=== PATIENT | male | born 1965 | race Hispanic/Latino ===

== ENCOUNTER 2018-04-18 19:46 | Inpatient (IN) | payer OTHER ==
[~2018-04-18] VITALS: Ht 182.9 cm; Wt 110.8 kg
[2018-04-18] MEDS ORDERED: ACETAMINOPHEN 325 MG TAB PO ONE (20:15)
[2018-04-18 20:39] LABS: BASOPHILS % 0.1 % (0.0-1.0); HEMATOCRIT 38.5 % (38.2-49.6); HEMOGLOBIN 13.9 g/dL (14.0-18.0); LYMPHOCYTES # (AUTO) 0.7 (1.0-3.2); LYMPHOCYTES % 7.5 % (18.0-39.1); MEAN CORPUSCULAR HEMOGLOBIN 31.8 pg (28-32); MEAN CORPUSCULAR HGB CONC 36.1 g/dL (31-35); MEAN CORPUSCULAR VOLUME 88.1 fL (81-99); MONOCYTES # (AUTO) 0.7 (0.2-0.8); MONOCYTES % 7.4 % (4.4-11.3); NEUTROPHILS # (AUTO) 8.3 (2.1-6.9); NEUTROPHILS % 84.5 % (38.7-80.0); PLATELET COUNT 157 x10e3/uL (140-360); RED BLOOD COUNT 4.37 x10e6/uL (4.3-5.7); RED CELL DISTRIBUTION WIDTH 12.1 % (11.7-14.4)
[2018-04-18 20:58] LABS: ALANINE AMINOTRANSFERASE 51 IU/L (0-55); ALBUMIN 3.6 g/dL (3.5-5.0); ALBUMIN/GLOBULIN RATIO 0.9 (0.8-2.0); ALKALINE PHOSPHATASE 78 IU/L (40-150); ANION GAP 16.2 mmol/L (8-16); BLOOD UREA NITROGEN 8 mg/dL (7-26); BUN/CREATININE RATIO 8 (6-25); CALCIUM 9.3 mg/dL (8.4-10.2); CARBON DIOXIDE 18 mmol/L (22-29); CHLORIDE 103 mmol/L (98-107); CREATININE, SERUM 1.06 mg/dL (0.72-1.25); EST GLOMERULAR FILTRATION RATE > 60 ML/MIN (60-); GLUCOSE 139 mg/dL (74-118); POTASSIUM 4.2 mmol/L (3.5-5.1); SODIUM 133 mmol/L (136-145)
[2018-04-18 21:09] LABS: CLARITY,URINE CLEAR (CLEAR); COLOR,URINE AMBER (YELLOW); LEUKOCYTE ESTERASE ,URINE NEGATIVE (NEGATIVE); NITRITE,URINE NEGATIVE (NEGATIVE); PROTEIN,URINE DIPSTICK 1+ (NEGATIVE)
[2018-04-18 21:10] LABS: BILIRUBIN,URINE NEGATIVE (NEGATIVE); KETONES,URINE TRACE (NEGATIVE); URINE UROBILINOGEN 1 mg/dL (0.2 - 1)
[2018-04-18 21:17] LABS: RBC,URINE 0-5 /HPF (0-5)
[2018-04-18 21:18] LABS: HYALINE CASTS 0-1 (0-1); MUCUS,URINE FEW (RARE)
[2018-04-18] MEDS ORDERED: SODIUM CHLORIDE 0.9% 1000ML 1,000 ML IV ONE (22:00)
--- NOTE | 2018-04-18 22:21 | Diagnostic Imaging Report ---
EXAMINATION: CHEST 2 VIEWS INDICATION: Fever COMPARISON: None FINDINGS: TUBES and LINES: None. LUNGS: Lungs are not well inflated. Left hemithorax airspace opacity. PLEURA: No pleural effusion or pneumothorax. HEART AND MEDIASTINUM: Cardiac size is mildly enlarged. BONES AND SOFT TISSUES: No acute osseous lesion. Cervicothoracic spinal fusion with plates and screws anteriorly Soft tissues are unremarkable. UPPER ABDOMEN: No free air under the diaphragm. IMPRESSION: Findings in the left hemithorax are consistent with pneumonia. Follow-up until resolution is recommended after treatment Signed by: Dr. John Urban M.D. on 04/18/2018 10:17 PM
[2018-04-18] MEDS ORDERED: LEVOFLOXACIN 750MG/D5W 150ML 150 ML IV STA (22:55)
[2018-04-18] MEDS: ALBUTEROL SULF 0.083% NEB SOLN 3 ML NEB NEB SCH (23:00)
[2018-04-19] VITALS (12 sets, daily range): BP systolic 127–176; BP diastolic 70–94
[2018-04-19 00:03] LABS: CREATINE KINASE MB 0.2 ng/mL (0-5.0)
[2018-04-19] MEDS ORDERED: IBUPROFEN 600 MG TAB ONE (00:04)
[2018-04-19] MEDS ORDERED: IBUPROFEN 600 MG TAB PO STA (00:06)
[2018-04-19] MEDS: LEVOFLOXACIN 750MG/DEXTROSE PREMIX BAG 150ML IV SCH ×2 (00:13→23:15)
[2018-04-19] MEDS: ALBUTEROL SULF 0.083% NEB SOLN 3 ML NEB NEB SCH ×6 (03:00→23:00)
[2018-04-19 04:51] LABS: BASOPHILS % 0.1 % (0.0-1.0); EOSINOPHILS % 0.1 % (0.0-6.0); HEMATOCRIT 36.7 % (38.2-49.6); HEMOGLOBIN 13.4 g/dL (14.0-18.0); LYMPHOCYTES # (AUTO) 0.6 (1.0-3.2); LYMPHOCYTES % 8.4 % (18.0-39.1); MEAN CORPUSCULAR HEMOGLOBIN 32.1 pg (28-32); MEAN CORPUSCULAR HGB CONC 36.5 g/dL (31-35); MEAN CORPUSCULAR VOLUME 87.8 fL (81-99); MONOCYTES # (AUTO) 0.6 (0.2-0.8); MONOCYTES % 8.2 % (4.4-11.3); NEUTROPHILS % 82.8 % (38.7-80.0); PLATELET COUNT 147 x10e3/uL (140-360); RED BLOOD COUNT 4.18 x10e6/uL (4.3-5.7); RED CELL DISTRIBUTION WIDTH 12.3 % (11.7-14.4)
[2018-04-19 05:12] LABS: ALANINE AMINOTRANSFERASE 43 IU/L (0-55); ALBUMIN 3.1 g/dL (3.5-5.0); ALBUMIN/GLOBULIN RATIO 0.9 (0.8-2.0); ALKALINE PHOSPHATASE 71 IU/L (40-150); ANION GAP 14.5 mmol/L (8-16); BLOOD UREA NITROGEN 8 mg/dL (7-26); BUN/CREATININE RATIO 9 (6-25); CALCIUM 9.2 mg/dL (8.4-10.2); CARBON DIOXIDE 22 mmol/L (22-29); CHLORIDE 107 mmol/L (98-107); CREATINE KINASE 36 IU/L (30-200); CREATININE, SERUM 0.86 mg/dL (0.72-1.25); EST GLOMERULAR FILTRATION RATE > 60 ML/MIN (60-); GLUCOSE 145 mg/dL (74-118); POTASSIUM 3.5 mmol/L (3.5-5.1); SODIUM 140 mmol/L (136-145)
[2018-04-19] MEDS: SODIUM CHLORIDE 0.9% 1000ML 1,000 ML IV SCH ×4 (05:33→23:15)
[2018-04-19] MEDS: ACETAMINOPHEN 325 MG TAB PO PRN ×3 (07:44→23:15)
[2018-04-19] MEDS: IPRATROPIUM BROMIDE 0.02% 2.5 ML NEB NEB SCH ×4 (08:42→18:00)
[2018-04-19] MEDS ORDERED: ONDANSETRON HCL INJ 2 MG/ML VIAL IV PRN (13:00)
[2018-04-19] MEDS: IBUPROFEN 600 MG TAB PO PRN ×2 (14:32→21:30)
[2018-04-19 14:45] LABS: CREATINE KINASE MB 0.4 ng/mL (0-5.0)
[2018-04-19] MEDS ORDERED: VANCOMYCIN 1GM/NS 250 ML 250 ML IV SCH (19:00)
[2018-04-19 19:04] LABS: ABG HCO3 22 mmol/L (23-28); ABG PCO2 31 mmHg (41-51); ABG PH 7.45 (7.31-7.41); ABG PO2 74 mmHg (80-105)
[2018-04-19] MEDS: VANCOMYCIN HCL 1.5 GM in SODIUM CHLORIDE 0.9% 250ML 300 ML IV SCH (19:50)
[2018-04-19] MEDS: ACETAMIN/BUTALBITAL/CAFFEINE TAB PO PRN (22:44)
[2018-04-20] VITALS (41 sets, daily range): BP systolic 121–155; BP diastolic 69–99
[2018-04-20] MEDS: ALBUTEROL SULF 0.083% NEB SOLN 3 ML NEB NEB SCH ×6 (03:15→23:05)
[2018-04-20] MEDS: IPRATROPIUM BROMIDE 0.02% 2.5 ML NEB NEB SCH ×6 (03:15→22:50)
[2018-04-20 04:46] LABS: BASOPHILS % 0.2 % (0.0-1.0); EOSINOPHILS % 0.2 % (0.0-6.0); HEMATOCRIT 35.4 % (38.2-49.6); HEMOGLOBIN 12.7 g/dL (14.0-18.0); LYMPHOCYTES # (AUTO) 0.6 (1.0-3.2); LYMPHOCYTES % 10.2 % (18.0-39.1); MEAN CORPUSCULAR HEMOGLOBIN 31.4 pg (28-32); MEAN CORPUSCULAR HGB CONC 35.9 g/dL (31-35); MEAN CORPUSCULAR VOLUME 87.4 fL (81-99); MONOCYTES # (AUTO) 0.4 (0.2-0.8); MONOCYTES % 7.3 % (4.4-11.3); NEUTROPHILS # (AUTO) 4.5 (2.1-6.9); NEUTROPHILS % 81.7 % (38.7-80.0); PLATELET COUNT 143 x10e3/uL (140-360); RED BLOOD COUNT 4.05 x10e6/uL (4.3-5.7); RED CELL DISTRIBUTION WIDTH 12.5 % (11.7-14.4)
[2018-04-20 05:14] LABS: ANION GAP 14.5 mmol/L (8-16); BLOOD UREA NITROGEN 6 mg/dL (7-26); BUN/CREATININE RATIO 7 (6-25); CALCIUM 9.2 mg/dL (8.4-10.2); CARBON DIOXIDE 21 mmol/L (22-29); CHLORIDE 108 mmol/L (98-107); CREATININE, SERUM 0.83 mg/dL (0.72-1.25); EST GLOMERULAR FILTRATION RATE > 60 ML/MIN (60-); GLUCOSE 124 mg/dL (74-118); POTASSIUM 3.5 mmol/L (3.5-5.1); SODIUM 140 mmol/L (136-145)
[2018-04-20] MEDS: VANCOMYCIN HCL 1.5 GM in SODIUM CHLORIDE 0.9% 250ML 300 ML IV SCH ×2 (08:45→19:31)
[2018-04-20] MEDS: ACETAMIN/BUTALBITAL/CAFFEINE TAB PO PRN (08:53)
[2018-04-20] MEDS: SODIUM CHLORIDE 0.9% 1000ML 1,000 ML IV SCH ×5 (09:44→21:15)
[2018-04-20 12:07] LABS: HIV 1&2 AB SCREEN NON-REACTIVE (NONREACTIVE)
[2018-04-20] MEDS: ACETAMINOPHEN 325 MG TAB PO PRN ×2 (12:12→19:00)
--- NOTE | 2018-04-20 13:54 | Diagnostic Imaging Report ---
PROCEDURE: CT scan of the chest WITH intravenous contrast, using standard protocol. TECHNIQUE: The chest was scanned utilizing a multidetector helical scanner from the lung apex through the level of the adrenal glands after the IV administration of 100 cc of Isovue 370. Coronal and sagittal multiplanar reformations were obtained. COMPARISON: Patients [facility], , CHEST 2 VIEWS, 04/18/2018, 20:17. INDICATIONS: PNEUMONIA,fever FINDINGS: Lines/tubes: None. Lungs and Airways: Focal consolidation involving the superior and posterior left upper lobe (for example, series 4, images 32, 53 and sagittal image 110). Mild compressive atelectasis in the left lower lobe. Focal groundglass opacities in the superior segment of the right lower lobe (series 4, image 55). 4 mm nodule in the lateral right lower lobe (series 4, image 68). No other nodules or any pulmonary masses. Airways are clear, without endobronchial lesions. Pleura: Small left-sided pleural effusion. Heart and mediastinum: Thyroid is unremarkable. Heart size is normal. No pericardial effusion. Aorta is not aneurysmal. No pulmonary artery is normal in caliber. Lymph nodes: No mediastinum, hilar, or axillary adenopathy. Abdomen: Please see CT abdomen performed same date for further detail. Bones: No aggressive lytic lesions. Mild degenerative changes in the thoracic spine. Soft tissues are unremarkable. IMPRESSION: 1. Focal consolidation in the left upper lobe consistent with pneumonia. Focal groundglass opacity in the superior segment of the right lower lobe may represent additional focus of infection versus atelectasis. 2. Small left pleural effusion, likely parapneumonic, with associated mild compressive atelectasis of the left lower lobe. 3. Nonspecific 4 mm nodule in the lateral right lower lobe. Malvin Ortiz M.D. Dictated by: Malvin Ortiz M.D. on 04/20/2018 at 13:59 Electronically approved by: Malvin Ortiz M.D. on 04/20/2018 at 13:59
--- NOTE | 2018-04-20 14:01 | Diagnostic Imaging Report ---
PROCEDURE: CT ABDOMEN WITH CONTRAST TECHNIQUE: The abdomen was scanned utilizing a multidetector helical scanner from the diaphragm to the iliac crest after the IV administration of 100 cc of Isovue 370 and the oral administration of water . Coronal and sagittal multiplanar reformations were obtained. COMPARISON: None. INDICATIONS: PNEUMONIA,FEVER FINDINGS: LOWER THORAX: Please see CT chest performed same date for description of lung findings. HEPATOBILIARY: Mild diffuse hepatic steatosis. Normal hepatic size and contour. 5 mm hypodense lesion in hepatic segment (series 2, image 68), which is to small to characterize but likely represents a small cyst. No other focal lesions. No biliary ductal dilation. Gallbladder is unremarkable. SPLEEN: No splenomegaly. PANCREAS: No focal masses or ductal dilatation. ADRENALS: No adrenal nodules. KIDNEYS: No renal or ureteral calculi, hydronephrosis, or obstruction. Fluid density 3.8 x 2.0 cm structure in the left renal sinus (coronal image 75), likely represents a peripelvic cyst. Additional subcentimeter fluid density structures in bilateral renal sinuses, likely representing other small peripelvic cysts. No solid enhancing lesions. PERITONEUM / RETROPERITONEUM: No free air or fluid. LYMPH NODES: No lymphadenopathy. VESSELS: Celiac trunk, superior and inferior mesenteric, and bilateral renal arteries are patent. Portal, superior mesenteric, and splenic veins are patent. Mild atherosclerotic calcification of the distal abdominal aorta and proximal vessels. GI TRACT: Visualized portions of the bowel show no dilation or obstruction. Appendix identified and normal in caliber. Scattered diverticula in the distal descending and proximal sigmoid colon without diverticulitis. BONES AND SOFT TISSUES: No aggressive lytic lesions. Minimal degenerative disc changes at L3-L4. Soft tissues are grossly unremarkable. IMPRESSION: 1. No acute abdominopelvic abnormalities. 2. Mild diffuse hepatic steatosis. No suspicious hepatic lesions. Malvin Ortiz M.D. Dictated by: Malivn Ortiz M.D. on 04/20/2018 at 14:06 Electronically approved by: Malvin Ortiz M.D. on 04/20/2018 at 14:06
[2018-04-20] MEDS ORDERED: SODIUM CHLORIDE 0.9% 50ML 50 ML ONE (15:04)
[2018-04-20] MEDS ORDERED: IOPAMIDOL 370 MG/ML 200 ML INFUS..BTL INJ ONE (15:05)
--- NOTE | 2018-04-20 16:24 | Consultation ---
DATE OF CONSULTATION: REASON FOR CONSULTATION: Sepsis, pneumonia. HISTORY OF PRESENT ILLNESS: This patient who is very pleasant 52-year-old gentleman, denies past medical history, comes into the hospital because he is having fever and chills. The patient is telling me that he was in good health. 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 Patient started to have fever, chills, not feeling well, some dry cough, came to the hospital because he was feeling really bad. The patient who is otherwise healthy, the patient apparently sick for the last 3 days, body aches, not feeling well, fever, temperature 103, and some cough. PAST MEDICAL HISTORY: Denies. PAST SURGICAL HISTORY: Neck surgery. ALLERGIES: NKA. SOCIAL HISTORY: Denies smoking, drug abuse, alcohol abuse. FAMILY HISTORY: Otherwise unremarkable. REVIEW OF SYSTEMS: HEENT: Negative. PULMONARY: Negative. CARDIAC: Negative. : Negative. SKIN: There are no other rashes. PHYSICAL EXAMINATION: He is alert, oriented, but he looked a little bit apprehensive, short of breath, looks uncomfortable when I was assessing him. LABS: White count is 9.7, hemoglobin 13. His sodium 133, potassium 4.2, creatinine 1.06. Chest x-ray showed left hemithorax pneumonia. His blood gas showed pH 7.45, pCO2 of 31, pO2 of 24, on FiO2 of 20%. IMPRESSION: Concerned about this patient's sepsis, pneumonia present on admission. Will change antibiotic to Levaquin, vancomycin. Will move him to intensive care unit. Will obtain arterial blood gases. Will give him intravenous fluids and assess the patient closely. Discussed with the attending. Will follow. Thank you. Job#: [id number]
[2018-04-20] MEDS: IBUPROFEN 600 MG TAB PO PRN ×2 (16:33→23:18)
[2018-04-20] MEDS: MEROPENEM 500 MG VIAL IV SCH ×2 (17:42→23:59)
[2018-04-20] MEDS ORDERED: MEROPENEM 500MG 500 MG in SODIUM CHLORIDE 0.9% 50ML 50 ML IV SCH (18:00)
--- NOTE | 2018-04-20 18:50 | Consultation ---
DATE OF CONSULTATION: PULMONARY CONSULTATION Patient of Dr. Villalta and Dr. Acevedo. An unfortunate 52-year-old gentleman admitted with left upper lobe pneumonia. He had fever and chills of 4 days duration. 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 Temperature as high as 104. He has had a nonproductive cough, left-sided chest pain, history of high blood pressure, earaches, sweats, myalgias. ALLERGIES: PENICILLIN. MEDICATIONS: No regular medications. PAST SURGICAL HISTORY: He has had neck surgery and hernia repair. 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 He recently visited [place]. FAMILY HISTORY: Positive for diabetes and coronary disease. PHYSICAL EXAMINATION GENERAL: A burly white male, anxious, but in no acute distress. VITAL SIGNS: Temperature 101.9, pulse 124, respirations 24, blood pressure 140/80. HEENT: Head is normocephalic, atraumatic. Eyes: Extraocular movements intact. LUNGS: Rales and bronchial breath sounds, left chest, anteriorly. HEART: Regular rhythm. ABDOMEN: Nontender, obese. EXTREMITIES: Not edematous. IMPRESSION: Pneumonia with parapneumonic effusion, left upper lobe. Antibiotics have now been changed to Levaquin and meropenem. Check review of his history of travel recently. Check Legionella. Consider thoracentesis in view of the patient's effusion and persistent fever. Consider bronchoscopy if the patient does not improve. There is no evidence of bronchial obstruction or airway bronchus. He was on Levaquin. He has now had the addition of vancomycin and meropenem. Will continue close monitoring in the ICU. Thank you for this kind referral. Job#: [id number]
[2018-04-20] MEDS ORDERED: DIPHENHYDRAMINE HCL 25 MG CAP PO PRN (21:00)
[2018-04-20] MEDS: LEVOFLOXACIN 750MG/DEXTROSE PREMIX BAG 150ML IV SCH (23:18)
[2018-04-21] VITALS (31 sets, daily range): BP systolic 73–171; BP diastolic 35–124
[2018-04-21] MEDS: ALBUTEROL SULF 0.083% NEB SOLN 3 ML NEB NEB SCH ×6 (03:10→22:55)
[2018-04-21] MEDS: IPRATROPIUM BROMIDE 0.02% 2.5 ML NEB NEB SCH ×6 (03:10→22:55)
[2018-04-21 05:16] LABS: INR 1.22; PROTHROMBIN TIME 14.5 seconds (11.9-14.5)
[2018-04-21 05:42] LABS: ALANINE AMINOTRANSFERASE 44 IU/L (0-55); ALBUMIN 2.5 g/dL (3.5-5.0); ALBUMIN/GLOBULIN RATIO 0.7 (0.8-2.0); ALKALINE PHOSPHATASE 96 IU/L (40-150); ANION GAP 12.6 mmol/L (8-16); BLOOD UREA NITROGEN 5 mg/dL (7-26); BUN/CREATININE RATIO 6 (6-25); CALCIUM 9.1 mg/dL (8.4-10.2); CARBON DIOXIDE 24 mmol/L (22-29); CHLORIDE 109 mmol/L (98-107); CREATININE, SERUM 0.84 mg/dL (0.72-1.25); EST GLOMERULAR FILTRATION RATE > 60 ML/MIN (60-); GLUCOSE 114 mg/dL (74-118); POTASSIUM 3.6 mmol/L (3.5-5.1); SODIUM 142 mmol/L (136-145)
[2018-04-21] MEDS: MEROPENEM 500 MG VIAL IV SCH ×3 (05:42→17:47)
[2018-04-21] MEDS: ACETAMINOPHEN 325 MG TAB PO PRN (05:44)
--- NOTE | 2018-04-21 06:06 | Diagnostic Imaging Report ---
EXAMINATION: CHEST SINGLE (PORTABLE) INDICATION: Pneumonia. COMPARISON: 04/18/2018 FINDINGS: TUBES and LINES: None. LUNGS: Lungs are well inflated. More confluent airspace opacity in the left midlung . PLEURA: Developing left pleural effusion. HEART AND MEDIASTINUM: Cardiac size is moderately enlarged. There are atherosclerotic calcifications within the aorta. BONES AND SOFT TISSUES: No acute osseous lesion. Soft tissues are unremarkable. UPPER ABDOMEN: No free air under the diaphragm. IMPRESSION: 1. Findings in the left hemithorax are compatible with developing pneumonia and small left pleural effusion. 2. Moderate enlargement of the heart without decompensation. Signed by: Dr. John Urban M.D. on 04/21/2018 6:03 AM
[2018-04-21 06:15] LABS: BASOPHILS % 0.2 % (0.0-1.0); EOSINOPHILS # (AUTO) 0.1 (0.0-0.4); EOSINOPHILS % 1.9 % (0.0-6.0); HEMATOCRIT 33.1 % (38.2-49.6); HEMOGLOBIN 11.7 g/dL (14.0-18.0); LYMPHOCYTES # (AUTO) 0.6 (1.0-3.2); LYMPHOCYTES % 13.2 % (18.0-39.1); MEAN CORPUSCULAR HEMOGLOBIN 31.9 pg (28-32); MEAN CORPUSCULAR HGB CONC 35.3 g/dL (31-35); MEAN CORPUSCULAR VOLUME 90.2 fL (81-99); MONOCYTES # (AUTO) 0.5 (0.2-0.8); MONOCYTES % 10.3 % (4.4-11.3); NEUTROPHILS # (AUTO) 3.5 (2.1-6.9); PLATELET COUNT 150 x10e3/uL (140-360); RED BLOOD COUNT 3.67 x10e6/uL (4.3-5.7)
[2018-04-21] MEDS: SODIUM CHLORIDE 0.9% 1000ML 1,000 ML IV SCH ×3 (06:23→22:28)
[2018-04-21 07:50] LABS: BAND NEUTROPHILS % (MANUAL) 6 %; LYMPHOCYTES % (MANUAL) 20 % (19-48); MONOCYTES % (MANUAL) 9 % (3.4-9.0); NEUTROPHILS % (MANUAL) 64 % (40-74); PLATELET ESTIMATE ADEQUATE; RBC MORPHOLOGY COMMENT NORMAL
[2018-04-21 07:51] LABS: PLATELET MORPHOLOGY COMMENT NORMAL
[2018-04-21] MEDS: VANCOMYCIN HCL 1.5 GM in SODIUM CHLORIDE 0.9% 250ML 300 ML IV SCH (08:00)
[2018-04-21] MEDS ORDERED: VANCOMYCIN 1GM/NS 250 ML 250 ML IV SCH (10:45)
--- NOTE | 2018-04-21 11:40 | Diagnostic Imaging Report ---
PROCEDURE: CHEST XRAY POST PROCEDURE COMPARISON: Chest radiograph 04/21/18. INDICATIONS: POST THORACENTESIS FINDINGS: LUNGS: Low lung volumes. Consolidative opacity in the left mid and lower lung zones, similar to prior radiograph. No evidence of edema. PLEURA: Trace left basilar pneumothorax, post thoracentesis. No significant air gap. No significant residual pleural effusion. HEART \T\ MEDIASTINUM: Apparent widening of the upper cardiomediastinal silhouette is likely secondary to portable technique and hydration status. BONES \T\SOFT TISSUES: No acute findings. CONCLUSION: Trace left basilar pneumothorax status post thoracentesis. No significant air gap. Left mid and lower lung zone consolidation, consistent with known pneumonia. Dictated by: OTONIEL GONZALES M.D. on 04/21/2018 at 11:45 Electronically approved by: OTONIEL GONZALES M.D. on 04/21/2018 at 11:45
--- NOTE | 2018-04-21 13:31 | Diagnostic Imaging Report ---
PROCEDURE:US CHEST COMPARISON:None. INDICATIONS:pleural effusion FINDINGS:Focused ultrasound was performed of the left chest to evaluate for pleural effusion. A small left basilar pleural effusion was identified. No right sided pleural effusion. CONCLUSION: Focused ultrasound of the chest demonstrating small left basilar pleural effusion and no right sided pleural effusion. Please refer to dictation from subsequently performed left sided diagnostic thoracentesis. Dictated by: OTONIEL GONZALES M.D. on 04/21/2018 at 13:35 Electronically approved by: OTONIEL GONZALES M.D. on 04/21/2018 at 13:35
--- NOTE | 2018-04-21 13:34 | Diagnostic Imaging Report ---
PROCEDURE: ULTRASOUND GUIDED LEFT DIAGNOSTIC THORACENTESIS INDICATIONS: Pneumonia, now with small left pleural effusion COMPARISON: CT Chest 04/20/18. TECHNIQUE: The patient was informed of the nature of the proposed procedure. The purposes, alternatives, risks, and benefits were explained and discussed. All questions were answered and written consent was obtained. Medications: 1% Xylocaine DESCRIPTION/FINDINGS: Informed consent was obtained from the patient. Sterile technique was used. An ultrasound-guided left sided diagnostic thoracentesis was performed. With the use of ultrasound guidance, a small left pleural fluid collection was identified. After infiltrating the skin with 1% xylocaine, a 20 gauge spinal needle was advanced into the left pleural space and 100 cc of serous fluid was removed. The needle was removed without immediate complication. A chest radiograph was ordered. Samples were sent for analysis. IMPRESSION: ULTRASOUND GUIDED LEFT SIDED DIAGNOSTIC THORACENTESIS WITH ASPIRATION OF 100 CC OF SEROUS FLUID. Dictated by: OTONIEL GONZALES M.D. on 04/21/2018 at 13:39 Electronically approved by: OTONIEL GONZALES M.D. on 04/21/2018 at 13:39
[2018-04-21 13:37] LABS: BODY FLUID APPEARANCE SL.CLOUDY; BODY FLUID COLOR YELLOW; BODY FLUID TYPE PLEURAL
[2018-04-21 13:38] LABS: RBC,BODY FLUID 2846 cells/uL; WBC,BODY FLUID 1609 cells/uL
[2018-04-21 13:43] LABS: LYMPHOCYTES,BODY FLUID 13 %; MONO/MACROPHG,BODY FLUID 11 %; OTHER CELLS,BODY FLUID 7 %
[2018-04-21 13:52] LABS: NEUTROPHILS,BODY FLUID 69 %
[2018-04-21] MEDS: ACETAMIN/BUTALBITAL/CAFFEINE TAB PO PRN (15:40)
[2018-04-21] MEDS: IBUPROFEN 600 MG TAB PO PRN (16:20)
[2018-04-21] MEDS: VANCOMYCIN HCL 2 GM in SODIUM CHLORIDE 0.9% 500ML 500 ML IV SCH (20:00)
[2018-04-21] MEDS: LEVOFLOXACIN 750MG/DEXTROSE PREMIX BAG 150ML IV SCH (23:00)
[2018-04-22] VITALS (39 sets, daily range): BP systolic 139–169; BP diastolic 75–106
[2018-04-22] MEDS: ACETAMINOPHEN 325 MG TAB PO PRN (00:05)
[2018-04-22] MEDS: ALBUTEROL SULF 0.083% NEB SOLN 3 ML NEB NEB SCH ×6 (03:05→22:45)
[2018-04-22] MEDS: IPRATROPIUM BROMIDE 0.02% 2.5 ML NEB NEB SCH ×6 (03:05→22:45)
[2018-04-22] MEDS: MEROPENEM 500 MG VIAL IV SCH ×4 (05:43→17:36)
[2018-04-22] MEDS: IBUPROFEN 600 MG TAB PO PRN (06:50)
[2018-04-22] MEDS: SODIUM CHLORIDE 0.9% 1000ML 1,000 ML IV SCH ×3 (08:10→22:53)
[2018-04-22] MEDS: VANCOMYCIN HCL 2 GM in SODIUM CHLORIDE 0.9% 500ML 500 ML IV SCH ×2 (08:34→20:20)
--- NOTE | 2018-04-22 16:32 | Progress Note ---
DATE: INTERNAL MEDICINE PROGRESS NOTE SUBJECTIVE: He is doing well. He is feeling better. He had fever early on, but now he is afebrile. PHYSICAL EXAMINATION VITAL SIGNS: Blood pressure 157/96. Temperature 99 degrees. Heart rate 99 per minute. Respiratory rate is 18 per minute. Oxygen saturation 99%. HEART: Regular rhythm. Normal S1, S2 sounds. LUNGS: Clear bilaterally. ABDOMEN: Soft. EXTREMITIES: No evidence of cyanosis, edema or trauma. BLOOD WORK: BMP: Sodium 142, potassium 3.6, chloride 109, CO2 24, BUN 5, creatinine 0.84. Glucose 114. On the CBC, white blood count 4.68, hemoglobin 10.7, hematocrit 33.1, platelet count 150,000. PT 14.5, INR 1.22, PTT 51.7. AST 34, ALT 44, total bilirubin 0.7, alkaline phosphatase 96. FINAL IMPRESSION 1. Lobar pneumonia. 2. Sepsis. 3. Hypertension. 4. Left pleural effusion. PLAN OF TREATMENT: Continue with albuterol q.4 h., Atrovent q.4 h., vancomycin 2 grams IV q.12 h. Continue normal saline 185 mL an hour. Fioricet 1 tablet q.6 h. as needed for headache. Ibuprofen 600 mg q.6 h. as needed. Tylenol 975 mg q.4 h. as needed for pain or fever. Levaquin 750 mg IV piggyback once a day. Benadryl 50 mg at bedtime. Zofran 4 mg IV q.4 h. as needed. Meropenem 500 mg IV q.6 h. I discussed the case with the family at the bedside. Labs have been reviewed. Medications have been reviewed. Time spent 55 minutes. Job#: [id number]
[2018-04-22] MEDS: ACETAMIN/BUTALBITAL/CAFFEINE TAB PO PRN (16:35)
[2018-04-22] MEDS: LEVOFLOXACIN 750MG/DEXTROSE PREMIX BAG 150ML IV SCH (22:53)
[2018-04-23] VITALS (22 sets, daily range): BP systolic 120–156; BP diastolic 40–102
[2018-04-23] MEDS: ACETAMIN/BUTALBITAL/CAFFEINE TAB PO PRN ×3 (00:03→21:50)
[2018-04-23] MEDS: MEROPENEM 500 MG VIAL IV SCH ×4 (01:02→18:07)
[2018-04-23] MEDS: IPRATROPIUM BROMIDE 0.02% 2.5 ML NEB NEB SCH ×6 (03:15→23:25)
[2018-04-23] MEDS: ALBUTEROL SULF 0.083% NEB SOLN 3 ML NEB NEB SCH ×6 (03:15→23:25)
[2018-04-23] MEDS: SODIUM CHLORIDE 0.9% 1000ML 1,000 ML IV SCH (05:25)
[2018-04-23] MEDS: ACETAMINOPHEN 325 MG TAB PO PRN (05:27)
[2018-04-23 07:37] LABS: BASOPHILS % 0.2 % (0.0-1.0); EOSINOPHILS # (AUTO) 0.1 (0.0-0.4); EOSINOPHILS % 2.5 % (0.0-6.0); HEMATOCRIT 32.4 % (38.2-49.6); HEMOGLOBIN 11.6 g/dL (14.0-18.0); LYMPHOCYTES # (AUTO) 0.7 (1.0-3.2); LYMPHOCYTES % 16.4 % (18.0-39.1); MEAN CORPUSCULAR HEMOGLOBIN 31.8 pg (28-32); MEAN CORPUSCULAR HGB CONC 35.8 g/dL (31-35); MEAN CORPUSCULAR VOLUME 88.8 fL (81-99); MONOCYTES # (AUTO) 0.2 (0.2-0.8); NEUTROPHILS % 73.4 % (38.7-80.0); PLATELET COUNT 197 x10e3/uL (140-360); RED BLOOD COUNT 3.65 x10e6/uL (4.3-5.7)
[2018-04-23 07:50] LABS: ANION GAP 11.3 mmol/L (8-16); BLOOD UREA NITROGEN 7 mg/dL (7-26); BUN/CREATININE RATIO 9 (6-25); CALCIUM 8.9 mg/dL (8.4-10.2); CARBON DIOXIDE 26 mmol/L (22-29); CHLORIDE 105 mmol/L (98-107); CREATININE, SERUM 0.79 mg/dL (0.72-1.25); EST GLOMERULAR FILTRATION RATE > 60 ML/MIN (60-); GLUCOSE 104 mg/dL (74-118); POTASSIUM 3.3 mmol/L (3.5-5.1); SODIUM 139 mmol/L (136-145)
[2018-04-23] MEDS: VANCOMYCIN HCL 2 GM in SODIUM CHLORIDE 0.9% 500ML 500 ML IV SCH ×2 (08:40→20:50)
[2018-04-23] MEDS: POTASSIUM CHLORIDE 20 MEQ TAB CR PO PRN ×2 (12:37→12:40)
--- NOTE | 2018-04-23 15:33 | Progress Note ---
DATE: INTERNAL MEDICINE PROGRESS NOTE SUBJECTIVE: Patient is doing well now. Temperature 99 degrees. Feeling better. PHYSICAL EXAMINATION VITAL SIGNS: Blood pressure 145/92. Temperature is 95. Heart rate 98 per minute. Respiratory rate 20 per minute. Oxygen saturation is 97%. HEART: Regular rhythm. Normal S1, S2 sounds. LUNGS: Clear bilaterally. ABDOMEN: Soft. EXTREMITIES: No evidence of cyanosis, edema or trauma. BLOOD WORK: We have BMP with a sodium 139, potassium 3.3, chloride 105, CO2 26, BUN 7, creatinine 0.79. Glucose 104. On the CBC, white blood count 4.02, hemoglobin 11.6, hematocrit 32.4, platelet count 197,000. PT 14.5, INR 1.22, PTT 51.7. AST 34, ALT 44, total bilirubin 0.7 and alkaline phosphatase 96. FINAL IMPRESSION 1. Lobar pneumonia. 2. Sepsis secondary to pneumonia. 3. Hypertension. 4. Pleural effusion. PLAN OF TREATMENT: We are going to continue albuterol q.4 h., Atrovent q.4 h., vancomycin IV twice a day. Continue also meropenem 500 mg IV q.6 h., Levaquin 750 mg IV q.24 h., Zofran 4 mg IV q.4 h. as needed, Benadryl 50 mg at bedtime, Tylenol 975 mg q.4 h. as needed, ibuprofen 600 mg q.6 h. as needed. We are going to replace the potassium because the potassium is low. We are going to recheck the potassium and magnesium levels tomorrow. The patient is going to be transferred to the regular medical floor. Job#: [id number]
[2018-04-23] MEDS: IBUPROFEN 600 MG TAB PO PRN (19:40)
[2018-04-23] MEDS ORDERED: SODIUM CHLORIDE 0.9% 250ML 250 ML ONE (21:04)
[2018-04-23] MEDS: LEVOFLOXACIN 750MG/DEXTROSE PREMIX BAG 150ML IV SCH (23:20)
[2018-04-24] VITALS (9 sets, daily range): BP systolic 146–172; BP diastolic 76–99
[2018-04-24] MEDS: MEROPENEM 500 MG VIAL IV SCH ×5 (00:40→23:41)
--- NOTE | 2018-04-24 01:15 | Progress Note ---
DATE: April 23, 2018 Mr. Traore improving. There is no new complaint. REVIEW OF SYSTEMS HEENT: Negative. PULMONARY: Negative. CARDIAC: Negative. PHYSICAL EXAMINATION GENERAL: He is currently alert, oriented, does not seem in acute distress. VITALS: Stable. Currently afebrile. HEENT: Not icteric. NECK: Supple. CHEST: Few crackles, coarse. HEART: S1, S2. No S3, S4 or murmur. ABDOMEN: Soft. IMPRESSIONS 1. Pneumonia, improving. 2. Continue on the same antibiotic. Await cultures. Await serology. Discussed with the patient. Will follow. Job#: [id number] CQ
[2018-04-24] MEDS: ALBUTEROL SULF 0.083% NEB SOLN 3 ML NEB NEB SCH ×6 (03:20→22:56)
[2018-04-24] MEDS: IPRATROPIUM BROMIDE 0.02% 2.5 ML NEB NEB SCH ×6 (03:20→22:56)
[2018-04-24 05:47] LABS: EOSINOPHILS # (AUTO) 0.2 (0.0-0.4); EOSINOPHILS % 3.8 % (0.0-6.0); HEMATOCRIT 36.1 % (38.2-49.6); HEMOGLOBIN 12.5 g/dL (14.0-18.0); LYMPHOCYTES # (AUTO) 0.9 (1.0-3.2); LYMPHOCYTES % 20.8 % (18.0-39.1); MEAN CORPUSCULAR HEMOGLOBIN 31.3 pg (28-32); MEAN CORPUSCULAR HGB CONC 34.6 g/dL (31-35); MEAN CORPUSCULAR VOLUME 90.3 fL (81-99); MONOCYTES # (AUTO) 0.3 (0.2-0.8); MONOCYTES % 6.2 % (4.4-11.3); NEUTROPHILS # (AUTO) 2.8 (2.1-6.9); PLATELET COUNT 240 x10e3/uL (140-360); RED CELL DISTRIBUTION WIDTH 13.1 % (11.7-14.4)
[2018-04-24 06:20] LABS: ANION GAP 13.5 mmol/L (8-16); BLOOD UREA NITROGEN 8 mg/dL (7-26); BUN/CREATININE RATIO 10 (6-25); CALCIUM 9.2 mg/dL (8.4-10.2); CARBON DIOXIDE 24 mmol/L (22-29); CHLORIDE 107 mmol/L (98-107); EST GLOMERULAR FILTRATION RATE > 60 ML/MIN (60-); GLUCOSE 108 mg/dL (74-118); POTASSIUM 3.5 mmol/L (3.5-5.1); SODIUM 141 mmol/L (136-145)
[2018-04-24 07:54] LABS: EOSINOPHILS % (MANUAL) 5 % (0-7); LYMPHOCYTES % (MANUAL) 13 % (19-48); MONOCYTES % (MANUAL) 7 % (3.4-9.0); NEUTROPHILS % (MANUAL) 72 % (40-74)
[2018-04-24 07:55] LABS: ANISOCYTOSIS SLIGHT; PLATELET ESTIMATE ADEQUATE; PLATELET MORPHOLOGY COMMENT NORMAL; RBC MORPHOLOGY COMMENT NORMAL
[2018-04-24] MEDS ORDERED: AMLODIPINE BESYLATE 5 MG TAB PO SCH (09:00)
[2018-04-24] MEDS ORDERED: POTASSIUM CHLORIDE 10 MEQ TABCR PO ONE (10:15)
[2018-04-24] MEDS: VANCOMYCIN HCL 2 GM in SODIUM CHLORIDE 0.9% 500ML 500 ML IV SCH ×2 (10:21→20:35)
[2018-04-24] MEDS: AMLODIPINE BESYLATE 5 MG TAB PO SCH (10:45)
--- NOTE | 2018-04-24 11:43 | Diagnostic Imaging Report ---
PROCEDURE: Frontal and lateral views of the chest. COMPARISON: 04/21/18 INDICATIONS: pneumonia FINDINGS: Lines/tubes: None. Lungs: Low lung volumes and body habitus. Central vascular congestion, accentuated by low lung volumes. Mild left upper lobe opacification. Pleura: There is no pleural effusion or pneumothorax. Heart and mediastinum: Enlarged cardiomediastinal silhouette, accentuated by low lung volumes. Bones: No acute bony abnormality. Cervical spine fusion hardwarw. IMPRESSION: Limited by low lung volumes and body habitus. Mild left upper lobe opacification, could represent developing pneumonia. Central vascular congestion, accentuated by low lung volumes. Dictated by: Petey Masterson M.D. on 04/24/2018 at 11:48 Electronically approved by: Petey Masterson M.D. on 04/24/2018 at 11:48
[2018-04-24] MEDS: ACETAMINOPHEN 325 MG TAB PO PRN (12:10)
[2018-04-24] MEDS: ACETAMIN/BUTALBITAL/CAFFEINE TAB PO PRN (17:51)
[2018-04-24] MEDS ORDERED: LEVOFLOXACIN 750MG/D5W 150ML 150 ML IV SCH (23:00)
[2018-04-25] VITALS: BP 166/95
[2018-04-25] MEDS: ALBUTEROL SULF 0.083% NEB SOLN 3 ML NEB NEB SCH ×4 (02:20→15:20)
[2018-04-25] MEDS: IPRATROPIUM BROMIDE 0.02% 2.5 ML NEB NEB SCH ×4 (02:20→15:20)
[2018-04-25 04:10] VITALS: BP 165/92
[2018-04-25] MEDS: MEROPENEM 500 MG VIAL IV SCH ×2 (05:26→12:09)
[2018-04-25 05:47] LABS: BASOPHILS % 0.7 % (0.0-1.0); EOSINOPHILS # (AUTO) 0.1 (0.0-0.4); EOSINOPHILS % 2.9 % (0.0-6.0); HEMATOCRIT 35.5 % (38.2-49.6); HEMOGLOBIN 12.4 g/dL (14.0-18.0); LYMPHOCYTES # (AUTO) 0.8 (1.0-3.2); LYMPHOCYTES % 17.9 % (18.0-39.1); MEAN CORPUSCULAR HEMOGLOBIN 31.5 pg (28-32); MEAN CORPUSCULAR HGB CONC 34.9 g/dL (31-35); MEAN CORPUSCULAR VOLUME 90.1 fL (81-99); MONOCYTES # (AUTO) 0.3 (0.2-0.8); MONOCYTES % 6.8 % (4.4-11.3); NEUTROPHILS % 68.8 % (38.7-80.0); PLATELET COUNT 251 x10e3/uL (140-360); RED BLOOD COUNT 3.94 x10e6/uL (4.3-5.7); RED CELL DISTRIBUTION WIDTH 13.1 % (11.7-14.4)
[2018-04-25 06:16] LABS: ALANINE AMINOTRANSFERASE 79 IU/L (0-55); ALBUMIN 2.8 g/dL (3.5-5.0); ALBUMIN/GLOBULIN RATIO 0.8 (0.8-2.0); ALKALINE PHOSPHATASE 103 IU/L (40-150); ANION GAP 12.4 mmol/L (8-16); BLOOD UREA NITROGEN 7 mg/dL (7-26); BUN/CREATININE RATIO 8 (6-25); CALCIUM 9.1 mg/dL (8.4-10.2); CARBON DIOXIDE 27 mmol/L (22-29); CHLORIDE 105 mmol/L (98-107); CREATININE, SERUM 0.84 mg/dL (0.72-1.25); EST GLOMERULAR FILTRATION RATE > 60 ML/MIN (60-); GLUCOSE 113 mg/dL (74-118); POTASSIUM 3.4 mmol/L (3.5-5.1); SODIUM 141 mmol/L (136-145)
[2018-04-25] MEDS: AMLODIPINE BESYLATE 5 MG TAB PO SCH (07:29)
[2018-04-25] MEDS: ACETAMIN/BUTALBITAL/CAFFEINE TAB PO PRN (07:29)
[2018-04-25 07:36] VITALS: BP 172/108
[2018-04-25] MEDS: POTASSIUM CHLORIDE 20 MEQ TAB CR PO PRN (08:05)
[2018-04-25] MEDS: VANCOMYCIN HCL 2 GM in SODIUM CHLORIDE 0.9% 500ML 500 ML IV SCH (08:05)
[2018-04-25 09:49] VITALS: BP 172/108
[2018-04-25 11:16] VITALS: BP 152/96
[2018-04-25] MEDS ORDERED: LEVAQUIN500 MG PO (12:53)
[2018-04-25] MEDS ORDERED: AMLODIPINE BESYL5 MG PO (12:53)
[2018-04-25] MEDS ORDERED: BUTALB-ACETAMI1 EACH PO (12:57)
--- NOTE | 2018-04-25 13:38 | Discharge Summary ---
ADMIT DIAGNOSES 1. Left-sided pneumonia. 2. Hypertension. 3. Migraine headaches. DISCHARGE DIAGNOSES 1. Sepsis secondary to left-sided pneumonia with parapneumonic effusion, resolved. 2. Left-sided pneumonia, resolving. 3. Hypertensive heart disease. 4. Migraine headaches. HOSPITAL COURSE: This is a 52-year-old white man who was initially admitted to [facility] with a diagnosis of left-sided pneumonia. During this hospitalization he was actually diagnosed with sepsis secondary to left-sided pneumonia with left parapneumonic effusion. During this hospitalization the patient improved clinically with intravenous antibiotics, namely vancomycin and levofloxacin. Patient was seen by an infectious disease specialist during this hospitalization, namely Dr. Acevedo. Patient also received intravenous meropenem during this hospitalization. Blood cultures did not reveal any growth during this hospital stay. The patient underwent ultrasound-guided left-sided thoracentesis during this hospital stay which revealed 100 mL of serous fluid. The patient's hospitalization was unremarkable. During this hospital stay the patient did undergo a CT of the chest that revealed focal consolidation of the left upper lobe consistent with pneumonia with small left pleural effusion that was likely parapneumonic according to the radiologist. The patient's hospitalization was unremarkable. His condition on discharge was stable. DISCHARGE MEDICATIONS 1. Levofloxacin 750 mg p.o. daily for 14 days. 2. Amlodipine 5 mg daily. 3. Fioricet 1 every 6 hours p.r.n. headache, 20 prescribed with 1 refill. FOLLOWUP INSTRUCTIONS: The patient is instructed to follow up with his primary care physician, namely Dr. Granda, within the next 2 weeks. Paperwork, namely Family Medical Leave Act documents, were completed during this hospitalization for patient's employer. I did indicate that the patient could return to work without restrictions on May 12, 2018. MAXINE ORTIZ MD Job#: [id number] EV cc:MD MAXIMILIANO LOCKHART MD
== END 2018-04-25 15:27 | disposition home or self-care (01) | DRG 871 ==
LOC: ER 19:46 → ERHOLD 22:58 → MED/SURG2 04-19 00:32 → ICU 04-19 19:54 → MED/SURG3 04-23 15:53
PROC: 0W9B3ZX Drainage of Left Pleural Cavity, Percutaneous Approach, Diagnostic (ICD-10-PCS; principal; 2018-04-20)
DX: A41.9 Sepsis, unspecified organism (principal); J18.9 Pneumonia, unspecified organism; J91.8 Pleural effusion in other conditions classified elsewhere; G43.909 Migraine, unspecified, not intractable, without status migrainosus; B96.89 Other specified bacterial agents as the cause of diseases classified elsewhere; I10 Essential (primary) hypertension
CPT/HCPCS: 32555; 36415; 36600; 71045; 71046; 71260; 74160; 74470; 76604; 80048; 80053; 80202; 81001; 82550; 82553; 82805; 82945; 83518; 83605; 83615; 83735; 84157; 84484; 85025; 85610; 85730; 86332; 86631; 86738; 87040; 87070; 87102; 87116; 87205; 87206; 87390; 87449; 88112; 88305; 89051; 94640; 96361; 96365; 99284; G0433; G0435; J2185; J3370; J7030; J7040; J7050; Q9967

== ENCOUNTER 2021-05-10 22:17 | Emergency (ER) | payer OTHER ==
[~2021-05-10] VITALS: Ht 182.9 cm; Wt 110.7 kg
[~2021-05-10 22:17] MED LIST: AMLODIPINE BESYL5 MG PO; BUTALB-ACETAMI1 EACH PO; LEVAQUIN500 MG PO
[2021-05-11] MEDS ORDERED: METHYLPREDNISOLONE SOD SUCC 125 MG/2ML VIAL IM ONE
[2021-05-11] MEDS ORDERED: ALBUTEROL/IPRATROPIUM 3 ML NEB NEB ONE (01:45)
== END 2021-05-11 02:00 | disposition home or self-care (01) ==
LOC: ER 23:22
DX: J40 Bronchitis, not specified as acute or chronic (principal); R06.2 Wheezing
CPT/HCPCS: 71045; 94640; 99283; J2930; U0002